=== PATIENT | male | born 1940 | race Caucasian/White ===

== ENCOUNTER 2020-10-07 11:04 | Emergency (ER) | payer MEDICARE ==
[~2020-10-07] VITALS: Ht 172.7 cm; Wt 74.7 kg
[2020-10-07 11:18] VITALS: BP 181/81
[2020-10-07] MEDS ORDERED: ORPHENADRINE CITRATE 60 MG/2 ML VIAL. IV ONE (11:45)
[2020-10-07] MEDS ORDERED: DEXAMETHASONE SOD PHOS 10 MG/ML VIAL. IVP ONE (11:45)
[2020-10-07] MEDS ORDERED: IV NORMAL SALINE 1,000ML 1,000 ML IV ONE (11:45)
--- NOTE | 2020-10-07 11:54 | PHYS DOC ---
Past History Additional Past Medical Histor: Prostate Cancer- radiation, kidney cancer Past Surgical History: Other Additional Past Surgical Histo: Aortic Valve Replacement, right partial nephrectomy Smoking: Quit Greater Than 1 Year Alcohol Use: Occasionally Drug Use: None General Adult EDM: Chief Complaint: BACK PAIN OR INJURY HPI: HPI: Patient is a 80 year old male who presents with right lower back pain. The patient describes a history of intermittent lower back pain. Yesterday after mowing his lawn, the patient started experiencing worsening right sided lower back pain. This morning while bending over, he experienced significant back pain that radiated down his posterior right thigh. He states the pain at that time was a 10/10 and made him feel nauseous. Currently the patient is only comfortable while lying supine and reports 8/10 right sided lower back pain. Movement worsens his pain. Denies change in urinary habits or bowel incontinence. Reports weakness in his right lower extremity. Denies any numbness or tingling at this time. Review of Systems: Review of Systems: Constitutional: Denies fever or chills Eyes: Denies redness or eye pain HENT: Denies nasal congestion or sore throat Respiratory: Denies cough or shortness of breath Cardiovascular: Denies chest pain or palpitations GI: Denies abdominal pain, nausea, or vomiting : Denies dysuria or hematuria Musculoskeletal: Reports right sided lower back pain; Denies joint pain Integument: Denies rash or skin lesions Neurologic: Denies headache, focal weakness or sensory changes Complete systems were reviewed and found to be within normal limits, except as documented in this note. Physical Exam: PE: Constitutional: Well developed, well nourished, no acute distress, non-toxic appearance HENT: Normocephalic, atraumatic Eyes: PERRL, EOMI, conjunctiva normal, no discharge Neck: Normal range of motion, no tenderness, supple Lungs & Thorax: No respiratory distress, equal chest rise and fall Abdomen: Soft, no tenderness Skin: Warm, dry, no erythema, no rash Back: Tenderness over the lower right back, no sign of rash or deformity Extremities: No tenderness with palpation, ROM limited due to pain in right lower extremity, no edema, cap refill in tact in BL feet Neurologic: Alert and oriented X 3, normal motor function, normal sensory function, no focal deficits noted Psychologic: Affect normal, judgment normal Current Patient Data: Vital Signs: Vital Signs Date Time Temp Pulse Resp B/P (MAP) Pulse Ox O2 Delivery O2 Flow Rate FiO2 10/07/20 11:18 98.2 52 18 181/81 100 Room Air Radiology/Procedures: Radiology/Procedures: PROCEDURE: CT LUMBAR SPINE WO CONTRAST CT ABDOMEN+PELVIS WO, CT LUMBAR SPINE WO History: Right back pain, history of prostate cancer. Right flank pain. Comparison: None. Technique: CT of the abdomen and pelvis was performed without contrast. Reconstructed dedicated CT images of the lumbar spine. Findings: The lung bases are clear. No pleural or pericardial effusion. The liver, gallbladder, spleen, and adrenal glands are unremarkable. There are punctate calcifications in the pancreas which otherwise maintains normal volume and morphology. Postsurgical changes to the posterior-inferior cortex of the right kidney. No hydronephrosis or nephrolithiasis. Stomach is decompressed. The small bowel is unremarkable. Normal appendix. Mild colonic diverticulosis. Heavy aortoiliac calcification without aneurysm. No abdominopelvic adenopathy. Mildly enlarged prostate with dense calcification or fiducials. No pelvic masses. No pelvic free fluid. Fat-containing left inguinal canal. Midline sternotomy changes. There are 5 nonrib-bearing lumbar vertebral segments. Severe disc height loss L4-L5 and L5-S1. Multilevel lumbar facet hypertrophy greatest at L4-L5 and L5-S1. T12-L1: No significant disc or facet disease. L1-L2: Mild disc bulge. No spinal canal or neuroforaminal stenosis. L2-L3: mild disc bulge, facet hypertrophy and hypertrophy cause mild neural foraminal narrowing. L3-L4: Moderate disc bulge, facet and ligamentum flavum hypertrophy narrow the spinal canal to approximately 5 mm AP, likely compressing the subarticular recesses and causes moderate right, mild left neural foraminal stenosis. L4-L5: Severe disc height loss, with disc bulge and facet hypertrophy causing severe spinal canal and neural foraminal stenosis. L5-S1: Severe disc height loss with disc bulge and facet hypertrophy cause severe right, moderate left neural foraminal stenosis and effacement of the subarticular recesses. Impression: 1. No acute findings in the abdomen and pelvis. 2. Degenerative changes of greatest at the lower lumbar spine causing spinal canal, subarticular and neural foraminal stenosis with potential for radicular symptoms at multiple levels. 3. No acute fracture or pathologic lesion in the lumbar spine or abdomen and pelvis. ------ Exposure: One or more of the following individualized dose reduction techniques were utilized for this examination: 1. Automated exposure control 2. Adjustment of the mA and/or kV according to patient size 3. Use of iterative reconstruction technique. Electronically signed by: Todd Patel MD (10/07/2020 1:17 PM) [facility] Heart Score: C/O Chest Pain: N/A Course & Med Decision Making: Course & Med Decision Making Pertinent Labs and Imaging studies reviewed. (See chart for details) Patient is a 80 year old male who presented with acute right lower back pain. P rupa has a history of intermittent lower back pain. History of prostate cancer and right sided renal cancer. History of right partial nephrectomy. Labs were WNL. CT of abd/pelvis/lumbar spine showed no acute findings in the abdomen and pelvis, degenerative changes of greatest at the lower lumbar spine, and no acute fracture or pathologic lesion in the lumbar spine or abdomen and pelvis. Fentanyl, orphenadrine and dexamethasone administered. Patient still reported back pain. Hydrocodone and naproxen administered. Patient counseled to follow up with pain management doctor for focused continued care. Patient stable for discharge with outpatient follow-up with PCP. Discussed findings and plan with patient, who acknowledges understanding and agreement. Philippe Disclaimer: Philippe Disclaimer: This electronic medical record was generated, in whole or in part, using a voice recognition dictation system. Departure Departure: Impression: Primary Impression: Back pain Qualified Codes: M54.41 - Lumbago with sciatica, right side Disposition: HOME / SELF CARE / HOMELESS Condition: STABLE Patient Instructions: Back Pain, Adult, [id number], Sciatica, [id number] Additional Instructions: ICE area of discomfort 20 min on then leave off next 20 mins. Repeat several times daily as needed for discomfort. Call and make an appointment to see Dr. Scout Lucas (pain management) [address] [facility], [address] [place] [address] Scripts Prednisone (PREDNISONE) 20 Mg Tablet 2 TAB PO DAILY for Back pain for 4 Days, #8 TAB /Start this medication tomorrow, 10/08/20 Prov: CAMERON IBARRA DO 10/07/20 Lidocaine (Lidocaine PATCH ) 1 Each Adh..patch 1 EACH TP DAILY for FOR LOCAL PAIN, #30 PATCH REMOVE AFTER 12 HOURS Prov: CAMERON IBARRA DO 10/07/20 Hydrocodone Bit/Acetaminophen (HYDROCODONE-APAP 5-325 ) 1 Each Tablet 0.5-1 TAB PO PRN Q6HRS PRN for PAIN, #14 TAB 0 Refills Prov: CAMERON IBARRA DO 10/07/20 Orphenadrine Citrate (ORPHENADRINE CITRATE) 100 Mg Tablet.er 1 TAB PO BID PRN for MUSCLE PAIN, #14 TAB 0 Refills Prov: CAMERON IBARRA DO 10/07/20 CAMERON IBARRA DO Oct 07, 2020 11:54
[2020-10-07 12:14] LABS: BASO % 0 % (0-3); EOS % 0 % (0-3); HEMATOCRIT 40.2 % (39.0-53.0); HEMOGLOBIN 13.6 g/dL (13.0-17.5); LYMPH # 1.3 x10^3/uL (1.0-4.8); LYMPH % 16 % (24-48); MEAN CORPUSCULAR HEMOGLOBIN 33 pg (25-35); MEAN CORPUSCULAR HGB CONC 34 g/dL (31-37); MEAN CORPUSCULAR VOLUME 96 fL (79-100); MONO # 0.2 x10^3/uL (0.0-1.1); MONO % 3 % (0-9); NEUT # 6.7 x10^3uL (1.8-7.7); NEUT % 81 % (31-73); PLATELET COUNT 172 x10^3/uL (140-400); RED BLOOD COUNT 4.18 x10^6/uL (4.30-5.70); RED CELL DISTRIBUTION WIDTH 14.3 % (11.5-14.5); WHITE BLOOD COUNT 8.3 x10^3/uL (4.0-11.0)
[2020-10-07 12:16] LABS: CALCIUM 8.9 mg/dL (8.5-10.1); CREATININE 0.9 mg/dL (0.7-1.3); GFR 81.6; POTASSIUM 4.2 mmol/L (3.5-5.1)
[2020-10-07 12:22] LABS: ALBUMIN 3.9 g/dL (3.4-5.0); ALBUMIN/GLOBULIN RATIO 1.4 (1.0-1.7); MAGNESIUM 2.1 mg/dL (1.8-2.4); TOTAL BILIRUBIN 0.8 mg/dL (0.2-1.0); TOTAL PROTEIN 6.6 g/dL (6.4-8.2)
[2020-10-07 13:14] LABS: BACTERIA,URINE 0 /HPF (0-FEW); BILIRUBIN,URINE NEG (NEG); CLARITY,URINE CLEAR; COLOR,URINE AMBER; GLUCOSE,URINE NEG (NEG); NITRITE,URINE NEG (NEG); RBC,URINE 0 /HPF (0-2); WBC,URINE 0 /HPF (0-4)
--- NOTE | 2020-10-07 13:19 | RAD ---
CT ABDOMEN+PELVIS WO, CT LUMBAR SPINE WO History: Right back pain, history of prostate cancer. Right flank pain. Comparison: None. Technique: CT of the abdomen and pelvis was performed without contrast. Reconstructed dedicated CT im ages of the lumbar spine. Findings: The lung bases are clear. No pleural or pericardial effusion. The liver, gallbladder, spleen, and adrenal glands are unremarkable. There are punctate calcification s in the pancreas which otherwise maintains normal volume and morphology. Postsurgical changes to the posterior-inferior cortex of the right kidney. No hydronephrosis or nephrolithiasis. Stomach is decompressed. The small bowel is unremarkable. Normal appendix. Mild colonic diverticulosi s. Heavy aortoiliac calcification without aneurysm. No abdominopelvic adenopathy. Mildly enlarged prosta te with dense calcification or fiducials. No pelvic masses. No pelvic free fluid. Fat-containing left inguinal canal. Midline sternotomy changes. There are 5 nonrib-bearing lumbar vertebral segments. Severe disc height loss L4-L5 and L5-S1. Multilevel lumbar facet hypertrophy greatest at L4-L5 and L5-S1. T12-L1: No significant disc or facet disease. L1-L2: Mild disc bulge. No spinal canal or neuroforaminal stenosis. L2-L3: mild disc bulge, facet hypertrophy and hypertrophy cause mild neural foraminal narrowing. L3-L4: Moderate disc bulge, facet and ligamentum flavum hypertrophy narrow the spinal canal to approx imately 5 mm AP, likely compressing the subarticular recesses and causes moderate right, mild left ne ural foraminal stenosis. L4-L5: Severe disc height loss, with disc bulge and facet hypertrophy causing severe spinal canal and neural foraminal stenosis. L5-S1: Severe disc height loss with disc bulge and facet hypertrophy cause severe right, moderate lef t neural foraminal stenosis and effacement of the subarticular recesses. Impression: 1. No acute findings in the abdomen and pelvis. 2. Degenerative changes of greatest at the lower lumbar spine causing spinal canal, subarticular and neural foraminal stenosis with potential for radicular symptoms at multiple levels. 3. No acute fracture or pathologic lesion in the lumbar spine or abdomen and pelvis. ------ Exposure: One or more of the following individualized dose reduction techniques were utilized for thi s examination: 1. Automated exposure control 2. Adjustment of the mA and/or kV according to patient size 3. Use of iterative reconstruction technique. Electronically signed by: Todd Patel MD (10/07/2020 1:17 PM) [facility]
[2020-10-07] MEDS ORDERED: PRED20TA PO (13:52)
[2020-10-07] MEDS ORDERED: ORPH-16 PO (13:52)
[2020-10-07] MEDS ORDERED: LIDO700A21 TP (13:52)
[2020-10-07] MEDS ORDERED: HYDR-2155 PO (13:52)
[2020-10-07] MEDS ORDERED: HYDROcodone/APAP 5/325MG 1 TAB TABLET PO ONE (14:00)
[2020-10-07] MEDS ORDERED: KETOROLAC 15 MG/ML VIAL. IVP ONE (14:00)
== END 2020-10-07 14:20 | disposition home or self-care (01) ==
LOC: ER 11:04
DX: M54.41 Lumbago with sciatica, right side (principal); Z87.891 Personal history of nicotine dependence
CPT/HCPCS: 36415; 72131; 74176; 80053; 81001; 83735; 85025; 96361; 96374; 96375; 99285; J1100; J1885; J2360; J3010; J7030